=== PATIENT | male | born 1995 | race Caucasian/White ===

== ENCOUNTER 2023-06-26 11:15 | Outpatient (CLI) | payer OTHER, SELFPAY ==
[2023-06-26 14:48] LABS: PCR FLU A Negative PCR FLU A (Negative); PCR FLU B Negative PCR FLU B (Negative)
[2023-06-26 14:55] LABS: SARS PCR* Negative SARS-CoV-2 (Negative)
== END 2023-06-26 11:16 | disposition home or self-care (01) ==
LOC: FBOREF 11:15
PROVIDERS: PCP Family Medicine; Visit Provider Family Medicine
DX: J20.9 Acute bronchitis, unspecified (principal)
CPT/HCPCS: 87631